=== PATIENT | male | born 1935 | race Caucasian/White ===

== ENCOUNTER 2017-02-10 15:00 | Inpatient (IN) | payer MEDICARE ==
[~2017-02-10] VITALS: Ht 180.3 cm; Wt 101.4 kg
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
--- NOTE | ~2017-02-10 | OR ---
PATIENT'S NAME: MAKENZIE GRIFFITH [facility] AGE: 81 Y [address] ROOM: [place] [address] LOCATION: [facility] ADMIT DATE: 02/10/2017 OR/Procedure Report DISCHARGE DATE: FAMILY PHYSICIAN: PHYSICIAN, UNKNOWN ATTENDING PHYSICIAN: Jovani Faria SURGEON: Jovani Faria MD CABINET BUILDER: DATE OF PROCEDURE: 02/10/2017 PREOPERATIVE DIAGNOSIS: Intertrochanteric fracture, right hip. POSTOPERATIVE DIAGNOSIS: Intertrochanteric fracture, right hip. PROCEDURE: Open reduction and internal fixation with long TFN. ANESTHESIA: General ET tube. INDICATIONS: This is an 81-year-old male, who fell off his riding lawnmower today at [place], where he lives at home alone on [facility]. Radiographs at [place] showed an intertrochanteric fracture of his right hip. DESCRIPTION OF PROCEDURE: The patient was brought to the operating room and when satisfactory general anesthesia had been established, he was transferred to the fracture table. His right lower extremity was placed in traction and the fracture reduced using C-arm to confirm reduction. He did have some distorted anatomy as he had a complex pelvis fracture that left deformities of the ilium. He also had somewhat of a varus angulation of his femoral neck with what looked like overgrowth of the greater trochanter. The right hip and thigh and hemipelvis were then prepped and draped in an aseptic manner. A straight lateral incision was made at the tip of the greater trochanter and carried down through the subcutaneous fat. The fascia of the gluteus ale was divided in line with its fibers, and the tip of the greater trochanter palpated. The trochanter was fenestrated with an awl, and the long guide pin pushed down the canal. The guide pin was measured, 400 mm long TFN selected. The proximal femur was overreamed with a 16 mm reamer, and then the femoral canal was sounded with a 13 mm reamer. The nail was pushed down the canal, and there was some resistance to passage of the nail. With reduction on the lateral view, there looked like there was a defect in the anterior head or neck and it looked essentially like a trapdoor of bone had been pushed into the neck. This was really not apparent on the AP view. It was thought that this defect might have to be filled with bone cement. An 18- gauge spinal needle was used to try to enter the defect, and it could be entered only by going anteriorly and down straight to the hip. It appeared to be in position in this defect on the lateral view, but it was difficult to say PATIENT'S NAME: MAKENZIE GRIFFITH [facility] AGE: 81 Y [address] ROOM: [place] [address] LOCATION: [facility] ADMIT DATE: 02/10/2017 OR/Procedure Report DISCHARGE DATE: FAMILY PHYSICIAN: PHYSICIAN, UNKNOWN ATTENDING PHYSICIAN: Jovani Faria exactly where it was on the AP view. 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 Several attempts were made to get the guidepin in the inferior neck and posterior to avoid this anterosuperior defect. When satisfactory position had been obtained, the guide pin was measured and the lateral cortex over-reamed. A 20 mm long helical blade was selected. It was impacted home. The setscrew and the nail were tightened down and then backed off 180 degrees. Traction was removed and the fracture compressed. With compression, the defect on the lateral view and the anterior neck closed down and although there was still a defect, it was now bordered by cortical bone. It was opted to not attempt to fill that with any bone cement or any other device. The insertion device was then removed. Position of the implants was checked with the C-arm. The two wounds were irrigated with saline, and the deep fascia on the proximal wound closed with interrupted #1 Vicryl. Subcutaneous fat on both wounds was closed with running 2-0 Vicryl, and the skin closed with skin noemy. Dressings were applied, and the patient awakened and sent to the PACU having tolerated the procedure well. MD CAROLYN CARTWRIGHT/esteban /[id number] d: 02/11/17 0218 t: 02/22/17 1034, OPERATIVE SUMMARY
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
--- NOTE | ~2017-02-10 | DS ---
PATIENT'S NAME: MAKENZIE GRIFFITH [facility] AGE: 81 Y [address] ROOM: [address] [address] LOCATION: [facility] ADMIT DATE: 02/10/2017 Discharge Summary DISCHARGE DATE: 02/13/2017 FAMILY PHYSICIAN: Physician, Unknown ATTENDING PHYSICIAN: Jovani Faria ADMISSION DIAGNOSIS: Fall, resulting in intertrochanteric fracture of the right hip. HOSPITAL COURSE: He was admitted and cleared by hospitalist for preoperative risk assessment, taken to the operating room, and a long TFN was placed. He had a femoral nerve block for postoperative pain control. Postop day 1, hemoglobin 11.6, GAS STATION MANAGER is intact to the operative foot and did well, he was afebrile. Postop day 2, hemoglobin 11.2, he was afebrile, wounds were healthy and granulating nicely. He did have some mild constipation that was addressed with medical management. Postop 3, hemoglobin was 10.8, and arrangements were made to be transferred to a usp facility closer to home. DISCHARGE MEDICATIONS: Reflected his preoperative medication with the following exceptions: 1. Aspirin 325 p.o. daily for 4 weeks for DVT prophylaxis then may resume 81 mg daily. 2. Colace 100 mg p.o. b.i.d. for constipation. 3. MiraLAX 17 g p.o. daily for constipation as needed. DISCHARGE INSTRUCTIONS: Weight bear as tolerated. Accu-Cheks a.c. and h.s. Continue OT, PT as indicated. Titrate oxygen to keep sats above 90. Follow up with us in 2 weeks. NATALIE GONZALEZ FOR MD MARY CARTWRIGHT/esteban /[id number] d: 02/23/17 0232 t: 03/01/17 0944, DISCHARGE SUMMARY
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
[2017-02-10 16:49] LABS: BASOPHIL # 0.1 K/uL (0.0-0.2); BASOPHIL % 0.3 %; EOSINOPHIL % 0.1 %; HEMATOCRIT 44.3 % (33.0-50.0); HEMOGLOBIN 14.9 g/dL (11.0-16.0); IMMATURE GRANULOCYTE # 0.2 K/uL (0.0-0.3); IMMATURE GRANULOCYTE % 0.8 %; LYMPHOCYTE # 0.8 K/uL (0.8-4.0); LYMPHOCYTE % 4.1 %; MCH 31.6 pg (27.0-34.0); MCHC 33.6 gm/dL (32.0-36.5); MCV 93.9 fl (83.0-98.0); MONOCYTE # 1.2 K/uL (0.0-1.0); MONOCYTE % 6.2 %; MPV 11.6 fl (9.4-12.4); NEUTROPHIL # (ANC) 16.4 K/uL (1.4-9.0); NEUTROPHIL % 88.5 %; NRBC % 0 /100WBC (0-0.00); PLATELET COUNT 194 K/uL (150-450); RBC 4.72 M/uL (3.50-5.50)
[2017-02-10 16:50] LABS: WBC 18.5 K/uL (4.0-11.0)
[2017-02-10] MEDS ORDERED: FISH OIL 1,2001 EACH PO (16:55)
[2017-02-10] MEDS ORDERED: ASPIRIN LO-DOSE81 MG PO (16:55)
[2017-02-10] MEDS ORDERED: VITAMIN D1000 UNIT PO (16:56)
[2017-02-10] MEDS ORDERED: ZOLOFT50 MG PO (16:56)
[2017-02-10] MEDS ORDERED: LASIX20 MG PO (16:56)
[2017-02-10] MEDS ORDERED: NORVASC5 MG PO (16:56)
[2017-02-10] MEDS ORDERED: LIPITOR80 MG PO (16:57)
[2017-02-10] MEDS ORDERED: ZANTAC (NON-FO150 MG PO (16:57)
[2017-02-10] MEDS ORDERED: FINASTERIDE5 MG PO (16:58)
[2017-02-10] MEDS ORDERED: TRIACET 0.1 CRE15 GM TOP (16:58)
[2017-02-10] MEDS ORDERED: GLUCOTROL 5MG XL5 MG PO (16:58)
[2017-02-10 17:06] LABS: ALBUMIN 3.9 gm/dL (3.5-5.0); ALK PHOS 64 IU/L (33-138); ALT 33 IU/L (12-78); ANION GAP 15.1 (10.0-19.0); AST 27 IU/L (10-40); BLOOD UREA NITROGEN 26 mg/dL (6-24); CALCIUM 8.6 mg/dL (8.5-10.5); CHLORIDE 111 mMol/L (96-110); CO2 23 mMol/L (22-32); CREATININE 1.1 mg/dL (0.6-1.3); ESTIMATED GFR (MDRD EQUATION) > 60; POTASSIUM 4.1 mMol/L (3.7-5.1); SODIUM 145 mMol/L (135-145); TOTAL BILIRUBIN 0.8 mg/dL (0.0-1.5); TOTAL PROTEIN 6.9 g/dL (6.0-8.4)
[2017-02-11 04:51] LABS: HEMOGLOBIN 11.6 g/dL (11.0-16.0)
[2017-02-11 04:54] LABS: HEMATOCRIT 35.4 % (33.0-50.0)
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
--- NOTE | 2017-02-11 16:16 | NUR ---
Significant Event: ALERT & ORIENTED X3. VSS, AFEBRILE, SATS LOW 90'S ON 1L 02. DRESSING CHANGED TO HIP. CSM INTACT OTHER THAN CHRONIC NUMBNESS. PERCOCET LAST GIVEN AT 1415. UP TO CHAIR WITH 1 ASSIST. IV SL. Follow up: [facility]
[2017-02-12 02:55] LABS: BASOPHIL % 0.2 %; EOSINOPHIL # 0.2 K/uL (0.0-0.5); EOSINOPHIL % 2.1 %; HEMATOCRIT 34.7 % (33.0-50.0); HEMOGLOBIN 11.2 g/dL (11.0-16.0); IMMATURE GRANULOCYTE # 0.1 K/uL (0.0-0.3); IMMATURE GRANULOCYTE % 0.7 %; LYMPHOCYTE # 0.7 K/uL (0.8-4.0); LYMPHOCYTE % 7.3 %; MCH 31.3 pg (27.0-34.0); MCHC 32.3 gm/dL (32.0-36.5); MCV 96.9 fl (83.0-98.0); MONOCYTE # 0.9 K/uL (0.0-1.0); MONOCYTE % 9.7 %; MPV 11.3 fl (9.4-12.4); NEUTROPHIL # (ANC) 7.4 K/uL (1.4-9.0); NRBC % 0 /100WBC (0-0.00); PLATELET COUNT 136 K/uL (150-450); RBC 3.58 M/uL (3.50-5.50); RDW-CV 13.2 % (11.9-14.6); WBC 9.2 K/uL (4.0-11.0)
[2017-02-12 03:08] LABS: ANION GAP 10.2 (10.0-19.0); BLOOD UREA NITROGEN 21 mg/dL (6-24); CALCIUM 7.9 mg/dL (8.5-10.5); CHLORIDE 107 mMol/L (96-110); CO2 26 mMol/L (22-32); CREATININE 1.1 mg/dL (0.6-1.3); ESTIMATED GFR (MDRD EQUATION) > 60; POTASSIUM 4.2 mMol/L (3.7-5.1); SODIUM 139 mMol/L (135-145)
--- NOTE | 2017-02-12 04:38 | NUR ---
Significant Event: Patient alert and oriented. Chronic numbness to right leg noted. Patient refused to tilt side to side this shift, states he is moving self around in bed. Encouraged tilt patient continued to refuse. Allowed repositioning up in bed. Percocet given x 1 with relief noted. Pleasant and cooperative with cares Follow up:
--- NOTE | 2017-02-12 15:49 | NUR ---
Significant Event: ALERT & ORIENTED. VSS, AFEBRILE, REMAINS ON 1 L O2, UNABLE TO WEAN, SATS 86-89% ON ROOM AIR. CSM INTACT TO R) LEG OTHER THAN CHRONIC NUMBNESS. PERCOCET LAST GIVEN AT 1410. UP TO CHAIR WITH 1 ASSIST. MD REMOVED MEPILEX, GAUZE AND TAPE APPLIED X2. Follow up: [facility] MONDAY OR MONDAY TO [facility].
[2017-02-13 04:28] LABS: HEMATOCRIT 33.1 % (33.0-50.0); HEMOGLOBIN 10.8 g/dL (11.0-16.0)
--- NOTE | 2017-02-13 04:51 | NUR ---
Shift Summary: Patient can ambulate short distance with 1 assist/walker/gait belt. Has old crush injury to right hip causing impaired gait and numbness to right leg. He has +3 pitting edema to lower legs and feet. Patient has good pain relief with 2 Percocet at a time. Voiding well, good appetite. To go to [facility] for swingbed today.
--- NOTE | 2017-02-13 12:49 | NUR ---
Pt has stable vitals. Pain controlled with Percocet 2 tabs, last dose at 0811, rates pain 2-7/10. 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 Transfers with SBA of 1/walker/GB. Island barrier dsgs to R hip are clean/dry/intact. Pedal pulses +1 bilaterally. Pt has +3 edema in L lower leg/foot and +4 edema in R foot, +3 edema in R leg. Pt has hx of CHF, states his legs are always "swollen". Pt has hx of DM type 2, was on ACHS blood sugar monitoring. Voids per urinal, last BM 02/11/17. Laxatives and stool softners refused by pt today because of his DC/transport in an ambulance. Report called to [facility] MCMAHAN.
--- NOTE | 2017-02-13 13:03 | NUR ---
Call from chargemaster analyst Kyla that they had orders on Harris to go to [facility] today. Let her know that I would be up shortly to talk with Harris and to get the referral process started. I stopped up to the floor, went into Jose' room. Introduced myself and CM role to him. He tells me that he lives at home in [place] and he is wanting to go to [facility] upon dismissal for some continued therapies and strenghtening. Harris, call me Bill, states that he doesn't have any kids or family to come and pick him up to take him to the [facility]. I let him know that I would be glad to set up an ambulance for him, but I had no way to promise that it would be covered. He tells me to go ahead and set it up and "if there is any out of pocket cost, I will just pay for it, it's no big deal." Told him that I would make the referral to Yue at the [facility] and set up the ambulance and then come back and update him. He was fine with this. I called/faxed in a referral to [facility]. Yue tells me that they should be able to accept later today if she could find an accepting doctor. I called down to EMS, talked with Laverne, set up non emergent ambulance for 1300 today. Laverne tells me that our crew will be able to transport. I updated Bill to this, he is fine with the plan to go at 1300 to [facility] if MD accepts him. Yue phoned me back, states that DR. Jett will accept, MD lucho CONNOR needs to be called in prior to Bill leaving us. I called Dr. Marin, updated him the the above and also gave him the number to call in report to Dr. Jett. Dr. Marin states he will do this as soon as he can. Dr. Staples and Sadi Andrade updated to the plan. Sadi did fill out the ambulance cert form. Orders were faxed over to [facility] prior to him leaving. RN to RN number was left on the chart for ANITA Esteban to call in report before Bill leaves. Bill was again updated to all the above and in agreement with this plan. No other questions, needs or concerns. CM to continue to follow and assist.
== END 2017-02-13 13:15 | disposition disaster alternative care site (69) | DRG 481 ==
LOC: GNTU 15:57
PROVIDERS: Family Medicine; ADMIT Orthopaedic Surgery
PROC: 0QS636Z Reposition Right Upper Femur with Intramedullary Internal Fixation Device, Percutaneous Approach (ICD-10-PCS; principal; 2017-02-10)
DX: S72.141A Displaced intertrochanteric fracture of right femur, initial encounter for closed fracture (principal); D62 Acute posthemorrhagic anemia; E11.9 Type 2 diabetes mellitus without complications; I11.0 Hypertensive heart disease with heart failure; I50.9 Heart failure, unspecified; W31.89XA Contact with other specified machinery, initial encounter; I25.10 Atherosclerotic heart disease of native coronary artery without angina pectoris; F32.9 Major depressive disorder, single episode, unspecified; I87.2 Venous insufficiency (chronic) (peripheral); R20.0 Anesthesia of skin; E78.00 Pure hypercholesterolemia, unspecified; I25.2 Old myocardial infarction; Z95.1 Presence of aortocoronary bypass graft; Z79.82 Long term (current) use of aspirin
CPT/HCPCS: C1713; J7030; J7120